=== PATIENT | male | born 1965 | race Hispanic/Latino ===

== ENCOUNTER 2020-03-06 22:36 | Emergency (ER) | payer OTHER ==
[2020-03-06] MEDS ORDERED: Lidocaine 1% (PF) 30 ML VIAL ONE (22:58)
[2020-03-06] MEDS ORDERED: Ibuprofen 800 MG TAB ONE (22:58)
[2020-03-06] MEDS ORDERED: Acetaminophen 500 MG TAB ONE (22:58)
[2020-03-06] MEDS ORDERED: cefTRIAXone\\ROCEPHIN 1 GM VIAL ONE (22:58)
[2020-03-06] MEDS ORDERED: Bacitracin 1 PK ONE (23:04)
== END 2020-03-06 23:36 | disposition home or self-care (01) ==
LOC: NAV ERS 22:36
DX: L03.012 Cellulitis of left finger (principal); E78.5 Hyperlipidemia, unspecified; E11.9 Type 2 diabetes mellitus without complications; E78.00 Pure hypercholesterolemia, unspecified; I10 Essential (primary) hypertension; Z79.4 Long term (current) use of insulin; Z79.899 Other long term (current) drug therapy
CPT/HCPCS: 36416; 96372; 99283; J0696; J2001